=== PATIENT | male | born 1955 | race Caucasian/White ===

== ENCOUNTER → 2017-07-23 | Outpatient (CLI) | payer BC ==
[~2017-07-23] MED LIST: AZOR 5 MG-20 MG1 TA1 PO; CALCIUM500 M1 PO; CARVEDILOL12.5 MG PO; NORCO 5-325 TA1 EACH PO; XGEVA120 MG/1.7 SC
== END | disposition home or self-care (01) ==
LOC: NM 10:51
DX: C79.51 Secondary malignant neoplasm of bone (principal); C61 Malignant neoplasm of prostate; M19.90 Unspecified osteoarthritis, unspecified site

== ENCOUNTER 2018-10-24 22:10 | Emergency (ER) | payer BC ==
[~2018-10-24] VITALS: Ht 172.7 cm; Wt 81.6 kg
[2018-10-24] MEDS ORDERED: NAPROSYN500 MG PO ×2 (23:56→23:57)
[2019-04-15] MEDS ORDERED: PREDNISONE10 MG PO (01:30)
[2019-04-15] MEDS ORDERED: PRESERVISION A1 EAC1 PO (01:32)
== END 2018-10-25 00:14 | disposition home or self-care (01) ==
LOC: ED 22:10
DX: G89.29 Other chronic pain (principal); M25.572 Pain in left ankle and joints of left foot; M54.5 Low back pain; M79.672 Pain in left foot; Z79.899 Other long term (current) drug therapy; Z96.652 Presence of left artificial knee joint; X58.XXXA Exposure to other specified factors, initial encounter; Y93.89 Activity, other specified; Y92.89 Other specified places as the place of occurrence of the external cause; Y99.8 Other external cause status

== ENCOUNTER → 2018-10-25 | Outpatient (CLI) | payer BC ==
[~2018-10-25] MED LIST changes: +NAPROSYN500 MG PO; +PREDNISONE10 MG PO; +PRESERVISION A1 EAC1 PO
== END | disposition home or self-care (01) ==
LOC: US 06:17
DX: M79.605 Pain in left leg (principal); R60.0 Localized edema

== ENCOUNTER → 2018-11-24 | Outpatient (CLI) | payer BC ==
[~2018-11-24] MED LIST changes: -PREDNISONE10 MG PO; -PRESERVISION A1 EAC1 PO
== END | disposition home or self-care (01) ==
LOC: CARD 07:24
DX: I08.1 Rheumatic disorders of both mitral and tricuspid valves (principal)

== ENCOUNTER → 2018-12-06 | Outpatient (CLI) | payer BC ==
[~2018-12-06] MED LIST changes: +PREDNISONE10 MG PO; +PRESERVISION A1 EAC1 PO
== END | disposition home or self-care (01) ==
LOC: ORTHO 00:31
DX: M79.642 Pain in left hand (principal)

== ENCOUNTER → 2019-08-03 | Outpatient (CLI) | payer BC | END | disposition home or self-care (01) | LOC: ORTHO 01:32 | DX: M18.12 Unilateral primary osteoarthritis of first carpometacarpal joint, left hand (principal) ==

== ENCOUNTER 2020-09-16 18:17 | Emergency (ER) | payer OTHER ==
[~2020-09-16] VITALS: Ht 172.7 cm; Wt 83.9 kg
== END 2020-09-16 21:15 | disposition home or self-care (01) ==
LOC: ED 18:17
DX: S66.911A Strain of unspecified muscle, fascia and tendon at wrist and hand level, right hand, initial encounter (principal); I10 Essential (primary) hypertension; Z85.46 Personal history of malignant neoplasm of prostate; Z79.899 Other long term (current) drug therapy; W18.30XA Fall on same level, unspecified, initial encounter; Y93.89 Activity, other specified; Y92.69 Other specified industrial and construction area as the place of occurrence of the external cause; Y99.8 Other external cause status

== ENCOUNTER → 2020-09-24 | Outpatient (CLI) | payer OTHER | END | disposition home or self-care (01) | LOC: RAD 12:01 | PROVIDERS: ATTEND Nurse Practitioner Family | DX: M25.531 Pain in right wrist (principal) ==

== ENCOUNTER → 2021-07-17 | Outpatient (CLI) | payer BC | END | disposition home or self-care (01) | LOC: RAD 13:10 | PROVIDERS: ATTEND Urology | DX: M85.852 Other specified disorders of bone density and structure, left thigh (principal); C61 Malignant neoplasm of prostate ==

== ENCOUNTER 2024-04-22 12:53 | Emergency (ER) | payer MEDICARE ==
[~2024-04-22] VITALS: Ht 172.7 cm; Wt 89.4 kg
[2024-04-22] MEDS ORDERED: Lidocaine Hydrochloride 2% 5 ML SDV SC ONE (14:40)
[2024-04-22] MEDS ORDERED: Tdap Vaccine 0.5 ML SYR (Adult Vaccine) IM ONE (14:40)
[2024-04-22] MEDS ORDERED: Bacitracin Zinc 14 GM TUBE T ONE (15:15)
== END 2024-04-22 15:27 | disposition home or self-care (01) ==
LOC: ED 12:53
DX: S81.812A Laceration without foreign body, left lower leg, initial encounter (principal); I10 Essential (primary) hypertension; Z87.891 Personal history of nicotine dependence; Z96.652 Presence of left artificial knee joint; X50.1XXA Overexertion from prolonged static or awkward postures, initial encounter; Y93.89 Activity, other specified; Y92.89 Other specified places as the place of occurrence of the external cause; Y99.8 Other external cause status